=== PATIENT | male | born 1970 | race Caucasian/White ===

== ENCOUNTER 2019-09-20 14:19 | Emergency (ER) | payer BC ==
[2019-09-20] MEDS ORDERED: Sodium Chloride 0.9% 1000 ML 1,000 ML IV STA (14:21)
[2019-09-20] MEDS ORDERED: MORPHINE SULFATE 4 MG INJ IV ONE (14:21)
[2019-09-20 14:35] LABS: Absolute Neutrophil Ct (ANC) 2.14 (1.4-6.9); Basophil (Absolute #) 0 (0-0.4); Eosinophil (Absolute #) 0.05 (0-0.5); Hematocrit 40.8 % (42-50); Hemoglobin 13.3 gm/dl (12.5-18.0); Lymphocyte (Absolute #) 2.36 (1.0-4.6); Lymphocytes % 48.1 % (24.0-44.0); Mean Cell Volume 92.5 fl (78-100); Mean Corpuscular Hemoglobin 30.2 pg (26-32); Mean Corpuscular Hgb Concent. 32.6 g/dl (32-36); Mean Platelet Volume 8.5 fl (7.5-11.0); Monocyte (Absolute #) 0.36 (0.0-1.3); Monocytes % 7.3 % (0.0-12.0); Neutrophil % 43.6 % (36.0-66.0); Platelet Count 272 K/mm3 (150-450); Red Blood Count 4.41 M/mm3 (4.1-5.6); Red Cell Distribution Width 13.9 % (11.5-14.0); White Blood Count 4.9 K/mm3 (4.0-10.5)
[2019-09-20] MEDS ORDERED: Nitrostat 0.4 MG (ED) SL ONE ×2 (14:40→17:35)
[2019-09-20] MEDS ORDERED: MORPHINE SULFATE 4 MG INJ ONE (14:42)
[2019-09-20] MEDS ORDERED: Sodium Chloride 0.9% 1000 ML 1,000 ML ONE (14:42)
--- NOTE | 2019-09-20 14:51 | XRAY ---
Indication: Chest pain. Comparison: None PA/lateral chest demonstrates normal heart, lungs, and bony thorax with a few incidental tiny calcified granulomas.
[2019-09-20 14:52] LABS: ALBUMIN 4.5 g/dL (3.5-5.0); ALKALINE PHOSPHATASE 56 U/L (38-126); ANION GAP 11.9 MEQ/L (5-15); BLOOD UREA NITROGEN 13 mg/dL (9-20); CHLORIDE 103 mmol/L (98-107); Calcium 9.6 mg/dL (8.4-10.2); Carbon Dioxide 29 mmol/L (22-30); Creatinine 1 0.96 mg/dL (0.66-1.25); Glucose 133 mg/dL (74-106); NT PRO BNP 25.5 pg/mL (0-450); Potassium 4.5 mmol/L (3.5-5.1); SGOT/AST 22 U/L (17-59); SGPT/ALT 28 U/L (0-50); SODIUM 140 mmol/L (137-145); Total Protein 7.5 g/dL (6.3-8.2)
--- NOTE | 2019-09-20 15:07 | ERPHSYRPT ---
- History of Present Illness Time Seen by Provider: 09/20/19 14:21 Source: patient Exam Limitations: no limitations Patient Subjective Stated Complaint: PT TO ER WITH COMPLAINTS OF CHEST PAIN/SOB X 2 HOURS. PT STATES IT STARTED WHEN HE WAS SITTING DOWN TO EAT LUNCH. PT DENIES ANY N/V. Triage Nursing Assessment: PT A&OX4. PT AMBULATORY. SKIN PWD. Physician History: Patient is here with chest pain. Patient has left-sided chest pain. Began at rest while eating. Patient states that radiates into his back. No falls no trauma. No fever no chills. Patient states that he has a family history of heart disease. However, no early heart attacks in his family. Patient states that he was given aspirin by the nurse. Location: left sided chest pain Quality: sharp Radiation: into back Severity: moderate Duration: 12:30 pm Timing: suddenly Modifying factors/associated signs and symptoms: associated with mild SOB Timing/Duration: today Activites at Onset: eating Quality: stabbing Allergies/Adverse Reactions: ciprofloxacin [From Cipro] Allergy (Mild, Verified 09/20/19 14:29) Vomiting Home Medications: Gabapentin 600 mg PO BID 09/20/19 [History] Metformin HCl 1,000 mg PO DAILY 09/20/19 [History] Oxycodone HCl/Acetaminophen [Percocet 10-325 mg Tablet] 1 each PO DAILY 09/20/19 [History] Tizanidine HCl 4 mg [Zanaflex 4 MG] 4 mg PO DAILY 09/20/19 [History] Hx Tetanus, Diphtheria Vaccination/Date Given: Yes Hx Influenza Vaccination/Date Given: Yes Hx Pneumococcal Vaccination/Date Given: No Immunizations Up to Date: Yes Travel Risk - International Travel Have you traveled outside of the country in past 3 weeks: No - Coronavirus Screening Are you exhibiting any of the following symptoms?: Yes Symptoms: Shortness of Breath Close contact with a COVID-19 positive Pt in past 14-21 Days: No - Past Medical History Pertinent Past Medical History: No Endocrine Medical History: Diabetes Type II Musculoskeletal History: Other Other Medical History: CHRONIC BACK PAIN - Past Surgical History Past Surgical History: Yes Other Surgical History: CYST REMOVAL - Social History Smoking Status: Never smoker Exposure to second hand smoke: No Drug Use: none Patient Lives Alone: No - Review of Systems Constitutional: No Fever, No Chills Eyes: No Symptoms Ears, Nose, & Throat: No Symptoms Respiratory: No Cough, No Dyspnea Cardiac: Chest Pain, No Edema, No Syncope Abdominal/Gastrointestinal: No Abdominal Pain, No Nausea, No Vomiting, No Diarrhea Genitourinary Symptoms: No Dysuria Musculoskeletal: No Back Pain, No Neck Pain Skin: No Rash Neurological: No Dizziness, No Focal Weakness, No Sensory Changes Psychological: No Symptoms Endocrine: No Symptoms All Other Systems: Reviewed and Negative - Nursing Vital Signs Nursing Vital Signs: Initial Vital Signs Temperature 98.4 F 09/20/19 14:21 Pulse Rate 67 09/20/19 14:21 Respiratory Rate 14 09/20/19 14:21 Blood Pressure 140/90 09/20/19 14:21 O2 Sat by Pulse Oximetry 98 09/20/19 14:21 Pain Scale Pain Intensity 10 - Physical Exam General Appearance: no apparent distress, alert Eye Exam: PERRL/EOMI Ears, Nose, Throat Exam: pharynx normal, moist mucous membranes Neck Exam: normal inspection, supple Respiratory Exam: normal breath sounds, lungs clear Cardiovascular Exam: regular rate/rhythm, No edema Gastrointestinal/Abdomen Exam: soft, No tenderness Back Exam: normal inspection, No CVA tenderness Extremity Exam: normal inspection, normal range of motion, No pedal edema Neurologic Exam: alert, oriented x 3, cooperative, sensation nml, No motor deficits Skin Exam: normal color, warm, dry, No rash SpO2: 98 - Course Nursing assessment & vital signs reviewed: Yes EKG Interpreted by Me: RATE, Sinus Rhythm, Other - Radiology Exams Chest X-ray Interpretation: Interpreted by me, No Pneumonia, No Pneumothorax Ordered Tests: Active Orders 24 hr Category Date Time Status Mirror Specialist STAT Care 09/20/19 14:22 Active EKG-ER Only STAT Care 09/20/19 14:21 Active EKG-ER Only STAT Care 09/20/19 17:11 Active IV Insertion STAT Care 09/20/19 14:21 Active CHEST 2 VIEWS (PA AND LAT) Stat Exams 09/20/19 14:22 Completed CTA CHEST W AND/OR WO [CT] Stat Exams 09/20/19 15:07 Completed CBC W DIFF Stat Lab 09/20/19 14:30 Completed CMP Stat Lab 09/20/19 14:30 Completed D-DIMER QUANTITATIVE Stat Lab 09/20/19 14:30 Completed NT PRO BNP Stat Lab 09/20/19 14:30 Completed TROPONIN Q3H Lab 09/20/19 14:30 Completed TROPONIN Q3H Lab 09/20/19 17:29 Completed TROPONIN Q3H Lab 09/20/19 20:30 Ordered TROPONIN Q3H Lab 09/20/19 23:30 Ordered TROPONIN Q3H Lab 09/21/19 02:30 Ordered Medication Summary Discontinued Medications Generic Name Dose Route Start Last Admin Trade Name Elaina PRN Reason Stop Dose Admin Sodium Chloride 1,000 mls @ 999 mls/hr 09/20/19 14:21 09/20/19 17:12 Sodium Chloride 0.9% 1000 Ml IV 09/20/19 15:21 Infused .Q1H1M STA Infusion Sodium Chloride Confirm 09/20/19 14:42 Sodium Chloride 0.9% 1000 Ml Administered 09/20/19 14:43 Dose 1,000 mls @ ud .ROUTE .STK-MED ONE Morphine Sulfate 4 mg 09/20/19 14:21 09/20/19 14:43 Morphine Sulfate 4 Mg Inj IV 09/20/19 14:22 4 mg STAT ONE Administration Morphine Sulfate Confirm 09/20/19 14:42 Morphine Sulfate 4 Mg Inj Administered 09/20/19 14:43 Dose 4 mg .ROUTE .STK-MED ONE Nitroglycerin 0.4 mg 09/20/19 14:40 09/20/19 14:41 Nitrostat 0.4 Mg (Ed) SL 09/20/19 14:41 0.4 mg STAT ONE Administration Nitroglycerin Confirm 09/20/19 17:35 Nitrostat 0.4 Mg (Ed) Administered 09/20/19 17:36 Dose 0.4 mg SL .STK-MED ONE Lab/Rad Data: Laboratory Result Diagrams 09/20/19 14:30 09/20/19 14:30 Laboratory Results 09/20/19 09/20/19 09/20/19 Range/Units 17:29 14:30 14:30 WBC (4.0-10.5) K/mm3 RBC (4.1-5.6) M/mm3 Hgb (12.5-18.0) gm/dl Hct (42-50) % MCV (78-100) fl MCH (26-32) pg MCHC (32-36) g/dl RDW (11.5-14.0) % Plt Count (150-450) K/mm3 MPV (7.5-11.0) fl Gran % (36.0-66.0) % Eos # (Auto) (0-0.5) Absolute Lymphs (auto) (1.0-4.6) Absolute Monos (auto) (0.0-1.3) Lymphocytes % (24.0-44.0) % Monocytes % (0.0-12.0) % Eosinophils % (0.00-5.0) % Basophils % (0.0-0.4) % Absolute Granulocytes (1.4-6.9) Basophils # (0-0.4) D-Dimer < 215 L (215-500) ng/mL Sodium (137-145) mmol/L Potassium (3.5-5.1) mmol/L Chloride (98-107) mmol/L Carbon Dioxide (22-30) mmol/L Anion Gap (5-15) MEQ/L BUN (9-20) mg/dL Creatinine (0.66-1.25) mg/dL Estimated GFR ML/MIN Glucose (74-106) mg/dL Calcium (8.4-10.2) mg/dL Total Bilirubin (0.2-1.3) mg/dL AST (17-59) U/L ALT (0-50) U/L Alkaline Phosphatase (38-126) U/L Troponin I < 0.012 < 0.012 (0.000-0.034) ng/mL NT-Pro-B Natriuret Pep (0-450) pg/mL Serum Total Protein (6.3-8.2) g/dL Albumin (3.5-5.0) g/dL 09/20/19 09/20/19 Range/Units 14:30 14:30 WBC 4.9 (4.0-10.5) K/mm3 RBC 4.41 (4.1-5.6) M/mm3 Hgb 13.3 (12.5-18.0) gm/dl Hct 40.8 L (42-50) % MCV 92.5 (78-100) fl MCH 30.2 (26-32) pg MCHC 32.6 (32-36) g/dl RDW 13.9 (11.5-14.0) % Plt Count 272 (150-450) K/mm3 MPV 8.5 (7.5-11.0) fl Gran % 43.6 (36.0-66.0) % Eos # (Auto) 0.05 (0-0.5) Absolute Lymphs (auto) 2.36 (1.0-4.6) Absolute Monos (auto) 0.36 (0.0-1.3) Lymphocytes % 48.1 H (24.0-44.0) % Monocytes % 7.3 (0.0-12.0) % Eosinophils % 1.0 (0.00-5.0) % Basophils % 0.0 (0.0-0.4) % Absolute Granulocytes 2.14 (1.4-6.9) Basophils # 0 (0-0.4) D-Dimer (215-500) ng/mL Sodium 140 (137-145) mmol/L Potassium 4.5 (3.5-5.1) mmol/L Chloride 103 (98-107) mmol/L Carbon Dioxide 29 (22-30) mmol/L Anion Gap 11.9 (5-15) MEQ/L BUN 13 (9-20) mg/dL Creatinine 0.96 (0.66-1.25) mg/dL Estimated GFR > 60.0 ML/MIN Glucose 133 H (74-106) mg/dL Calcium 9.6 (8.4-10.2) mg/dL Total Bilirubin 0.70 (0.2-1.3) mg/dL AST 22 (17-59) U/L ALT 28 (0-50) U/L Alkaline Phosphatase 56 (38-126) U/L Troponin I (0.000-0.034) ng/mL NT-Pro-B Natriuret Pep 25.5 (0-450) pg/mL Serum Total Protein 7.5 (6.3-8.2) g/dL Albumin 4.5 (3.5-5.0) g/dL - Progress Progress: improved Progress Note: 09/20/19 15:06 Differential diagnosis includes STEMI, PE, infection, pneumonia, aortic dissection - We'll obtain basic labs, fluids, EKG, troponin, chest x-ray - EKG shows no ST changes - my read. See full read below. - O2 saturations consistently greater than 95%. - CXR shows no pneumonia, pneumothorax - my read - no other obvious lab abnormalities 09/20/19 17:46 Repeat EKG demonstrated no ischemic changes. Continued sinus rhythm. Regular rate and rhythm. 09/20/19 18:09 Patient stated he had an increase in chest pain. Repeat troponin came back negative. Given that he was having increasing chest pain we did repeat an EKG at 602. This shows sinus rhythm without obvious ischemic changes. Does appear very similar to his previous EKGs. I did discuss this with the who is a nurse and the patient. They requested that we transfer the patient to [facility] in [facility]. I spoke with Dr. Guzman. She accepted the patient to [place]. 09/20/19 18:19 - Departure Departure Disposition: Transfer Clinical Impression: Chest pain Condition: Stable Critical Care Time: Yes Critical Care Time(excluding separately billable procedures): Critical 30-74 mins Referrals: QIAN PEÑA [Primary Care Provider] - Instructions: Chest Pain (DC)
--- NOTE | 2019-09-20 16:23 | XRAY ---
Indication: Chest pain. Aortic dissection. Conventional contrast enhanced CTA chest performed using 80 cc Isovue 370 contrast. Two-dimensional sagittal and coronal reformatted images obtained. Additional 3-dimensional reformatted images obtained using a separate workstation. Comparison: None Aorta is normal in course and caliber without aneurysm, dissection, or arteriosclerotic disease. Normal widely patent branching right brachiocephalic, left common carotid, and left subclavian arteries. Heart is not enlarged. No pathologic mediastinal/hilar lymphadenopathy. Lungs demonstrates minimal bilateral dependent atelectasis. No suspicious pulmonary mass, infiltrate, or effusion. Bony thorax intact. Limited upper abdomen demonstrates mild fatty liver. Impression: 1. Normal CTA chest with contrast exam. No acute cardiopulmonary abnormalities. 2. Incidental fatty liver.
[2019-09-20 18:06] VITALS: BP 137/95; PULSE 52
[2019-09-20 18:10] VITALS: O2SAT 98
== END 2019-09-20 18:40 | disposition short-term general hospital (02) ==
LOC: ED 14:19
DX: R07.9 Chest pain, unspecified (principal)
CPT/HCPCS: 36000; 36415; 71046; 71275; 80053; 83880; 84484; 85025; 85379; 93005; 93041; 96360; 96374; 99285; 99291; J2270; A9270-GY